=== PATIENT | female | born 1985 | race Caucasian/White ===

== ENCOUNTER → 2017-12-21 10:24 | Outpatient (CLI) | payer OTHER, SELFPAY | DX: Z23 Encounter for immunization (principal) ==

== ENCOUNTER → 2019-01-24 11:50 | Outpatient (CLI) | payer OTHER, SELFPAY | DX: Z23 Encounter for immunization (principal) | CPT/HCPCS: 90471; 90686 ==

== ENCOUNTER 2019-03-26 21:57 | Emergency (ER) | payer OTHER, SELFPAY ==
[2019-03-26 22:02] VITALS: BP 115/74; PULSE 89; RESP 14; TEMP 36.6; O2SAT 98; BMI 25.1
--- NOTE | 2019-03-26 22:11 | DI.RAD.S_ITS ---
PROCEDURE: XR KNEE LT 3V INDICATIONS: volleyball injury TECHNIQUE: Pre-views of the knee were acquired. COMPARISON: None. FINDINGS: Bones: No fractures or dislocations. No suspicious bony lesions. Status post anterior cruciate ligament repair. Soft tissues: Large suprapatellar joint effusion. No suspicious soft tissue calcifications. IMPRESSION: 1. No fracture. No osseous lesion. If symptoms and/or clinical suspicion for pathology persists, further assessment with repeat radiographs (7-10 days) or advanced imaging (e.g. CT, MRI or bone scan) may be helpful. 2. Large nonspecific joint effusion. Dictated by: Adriana Guadarrama MD, PhD on 03/27/2019 at 8:58 Approved by: Ardiana Guadarrama MD, PhD on 03/27/2019 at 8:59
--- NOTE | 2019-03-26 23:27 | ED_ITS ---
HPI - Extremity Injury (Lower) General Chief Complaint: Extremity Injury, Lower Stated Complaint: left knee pain Time Seen by Provider: 03/26/19 22:27 Source: patient Mode of arrival: Ambulatory Limitations: no limitations History of Present Illness HPI Narrative: Otherwise healthy 33-year-old woman presents with acute knee injury. She was playing volleyball this afternoon, planted her foot and then moved beyond the range of her knee. She felt that with it almost dislocated and then as she stood again it was back in position. Acutely painful and noticed an effusion starting immediately. She has a past history of an ACL repair on this knee. Review of Systems Review of Systems Narrative: Denies ? fever ? cough ? cold ? chills ? chest pain ? dyspnea ? orthopnea ? wheezing ? abdominal pain ? change to bowel or bladder habits ? nausea vomiting ? skin changes ? rashes Patient History Surgical History (Updated 03/26/19 @ 23:42 by Akiko Ballard MD) History of repair of ACL (Acute) Social History Smoking Status: Never smoker Smoking Status: Never smoker alcohol intake frequency: 0-2 drinks per day Substance Use Type: does not use Exam Narrative Exam Narrative: General: Alert appropriate in no acute distress Respiratory: Able to speak in full sentences, no obvious respiratory distress Skin: No obvious rashes, warm and dry Neurologic: Grossly intact no obvious asymmetries or abnormalities Psych, appropriate insight and affect, cooperative Lower extremity: Left knee with effusion. Difficult to fully examine due to swelling and pain however and there is significant laxity with anterior- posterior motion of the knee. She is neurovascularly intact distally. Initial Vital Signs Initial Vital Signs: Vital Signs Temperature 97.9 F 03/26/19 22:02 Pulse Rate 89 03/26/19 22:02 Respiratory Rate 14 03/26/19 22:02 Blood Pressure 115/74 03/26/19 22:02 Pulse Oximetry 98 03/26/19 22:02 Course Orders Ordered: ED Orders 03/26/19 22:11 XR knee LT 3V Stat Vital Signs Vital signs: Vital Signs - 8 hr 03/26/19 22:02 Temperature 97.9 F Pulse Rate 89 Respiratory Rate 14 Blood Pressure 115/74 Pulse Oximetry 98 MDM - Extremity Injury (Lower) Differential Diagnosis Differential diagnosis: Likely acute internal derangement of knee Medical Records Attestation: I reviewed the patient's medical records. Imaging Data Knee x-ray: Attestation: I personally reviewed and interpreted this imaging study as follows: My Impression: Significant effusion developing. Screw from prior surgery is noted. No bony injury or evidence of avulsion fracture. MDM Narrative Medical decision making narrative: 33-year-old woman with prior ACL injury to similar knee with similar mechanism and similar pain in presentation. I am concerned that she has again torn her ACL. She'll be placed in a knee immobilizer. Recommended not weight-bearing fully on that leg unsupported until she has been further evaluated by orthopedics. She any additional pain medication. She has her own crutches. All questions were answered. She is safe for home discharge Discharge Plan Departure Patient Disposition: Home Clinical Impression: Internal derangement of knee Qualifiers: Laterality: left Qualified Code(s): M23.92 - Unspecified internal derangement of left knee Instructions: DI for Knee Pain Activity Restrictions/Additional Instructions: Thank you for coming in today I'm so sorry that you injured your knee. I am quite concerned that you have again torn your anterior cruciate ligament. Your x-ray shows quite a bit of swelling but no bony injury. You will need to follow-up with our orthopedist office in the next week or so. You likely will end up needing an MRI but we need the swelling to go down to be able to do a more thorough exam to be able to recommend this completely. In the meantime, I a.m. concerned that your knee is not completely stable. Your biggest risk at this point is to step on the knee and fall again secondary to pain or knee instability. Please use the knee immobilizer and crutches until you have been seen by the orthopedic surgeon Ice, elevation, staying off the knee as much as possible and ibuprofen can all be helpful for pain control. I wish you the best and I hope this heals quickly Referrals: Driss Locke MD [Physician] -
[2019-03-26 23:51] VITALS: BP 113/73; PULSE 67; RESP 15; O2SAT 97
== END 2019-03-26 23:54 | disposition home or self-care (01) ==
PROVIDERS: Emergency Provider Emergency Medicine
DX: M23.92 Unspecified internal derangement of left knee (principal); X50.1XXA Overexertion from prolonged static or awkward postures, initial encounter; Y93.68 Activity, volleyball (beach) (court); Z87.828 Personal history of other (healed) physical injury and trauma
CPT/HCPCS: 73562; 99283

== ENCOUNTER → 2019-04-11 13:40 | Outpatient (CLI) | payer OTHER, SELFPAY ==
--- NOTE | 2019-04-11 | DI.MRI.S_ITS ---
PROCEDURE: MR KNEE LT WO CON INDICATIONS: PAIN IN LEFT KNEE TECHNIQUE: Noncontrast sagittal PD fast spin echo and T2 fast spin echo with fat saturation, sagittal 3-D FLASH with fat saturation; coronal T1 spin echo and PD fast spin echo with fat saturation, and axial PD fast spin echo with fat saturation through the knee. COMPARISON: [facility], CR, XR KNEE LT 3V, 03/26/2019, 22:08. [facility], MR, KNEE WITHOUT CONTRAST, 06/04/2017, 13:42. FINDINGS: Image quality: Diagnostic. Bones and joint: There is no acute fracture or dislocation. However, there is moderate diffuse marrow edema evident involving the posterior aspect of the medial and lateral portions of the tibial plateau. There is a concave deformity evident involving the weightbearing surface of the lateral femoral condyle with underlying reactive marrow edema. No suspicious osseous lesions are evident. There is a moderate-sized joint effusion with a trace amount of fluid extending into a small Gilliland's cyst. Moderate edema about the knee is present within the subcutaneous tissues. There is a small irregular full-thickness cartilaginous defect evident at the apex of the medial and lateral patellar facets with trace amount of reactive marrow edema. Otherwise, the hyaline articular cartilage throughout the knee is within normal limits. Cruciate ligaments: Postoperative changes are present related to previous ACL reconstruction. The ligamentous graft appears to be completely disrupted, particularly when compared to the prior study. The posterior cruciate ligament is intact. Menisci: There is moderate grade partial-thickness tearing involving the posterior root of the medial meniscus without definite complete root avulsion. The lateral meniscus is thinned, but noted to be intact. Medial structures: The medial collateral ligament is intact. Increased signal about the medial collateral ligament is noted. The semimembranosus tendon insertion is intact. The imaged portions of the pes anserinus tendons are unremarkable. No significant fluid is contained within the pes anserinus bursa. There is a medial patellar plica. Lateral structures: The popliteal tendon is intact. The lateral collateral ligament proper (fibular collateral ligament) and the proximal tibiofibular ligaments are intact. The distal aspect of the biceps femoris tendon and the iliotibial band are intact. Anterior structures: The quadriceps and patellar tendons are intact. Moderate increased signal is noted involving the proximal patellar tendon. There is no significant edema in the infrapatellar fat pad. IMPRESSION: 1. Bone contusions involve the posterior aspect of the medial and lateral portions of the tibial plateau and at the weightbearing surface of the lateral femoral condyle. No displaced fractures. 2. Full-thickness tear of the ACL graft, status post ACL reconstruction. 3. Moderate proximal patellar tendinopathy. 4. Medial collateral ligament sprain. 5. Moderate grade partial-thickness tear involving the posterior root of the medial meniscus. 6. Early patellofemoral chondromalacia. 7. Moderate-sized knee joint effusion with an associated Gilliland's cyst. 8. Subcutaneous edema about the knee. Dictated by: Darwin Waterman M.D. on 04/11/2019 at 13:43 Approved by: Darwin Waterman M.D. on 04/11/2019 at 13:47
== END ==
PROVIDERS: PCP Family Medicine; Visit Provider Family Medicine
DX: M25.562 Pain in left knee (principal); S80.02XA Contusion of left knee, initial encounter; S83.412A Sprain of medial collateral ligament of left knee, initial encounter; S83.242A Other tear of medial meniscus, current injury, left knee, initial encounter; T84.498A Other mechanical complication of other internal orthopedic devices, implants and grafts, initial encounter; M71.22 Synovial cyst of popliteal space [Baker], left knee; M22.42 Chondromalacia patellae, left knee; M25.462 Effusion, left knee
CPT/HCPCS: 73721

== ENCOUNTER 2019-06-14 15:15 | Outpatient (RCR) | payer OTHER, SELFPAY ==
--- NOTE | 2019-05-04 15:20 | PT.OPPOC ---
Physical, Occupational & Speech Therapy At [facility] Current Diagnoses Pain in left knee (05/04/19) Visit Care Team Role Provider Type Kiera Roberson MD Attending Provider Non-Staff Primary Care Provider Referring Provider Specialty: Medical Address: [address] [place] [address], [id number] Email: Plan Of Care PT-OP-T Assessment and Plan Start: 05/04/19 16:27 Freq: Status: Active Protocol: Document 05/04/19 15:20 DLM (Rec: 05/04/19 17:26 DLM [id number]) Physical Therapy Assessment Rehab Potential Rehabilitation Potential Excellent Evaluation Complexity Number of Personal Factors/Comorbidities 1-2 Number of Body Systems Impaired 4 or More Clinical Presentation at Evaluation Evolving Impairments Impairments Activity Tolerance,Balance, Functional Activities,Gait, Pain,ROM,Soft Tissue Mobility, Strength Other Concerns Age Related Concerns Cares for children Goals Three Impairment Decreased strength Left LE; knee 4/5, hip flex 4/5, hip ABD 4+/5 Short Term Goal (STG) Increase left knee strength to 4+/5 STG Duration 4 weeks Surgical Elastic Knitter Goal (LTG) Increase left LE strength to 5 /5 LTG Duration 6 weeks Two Impairment Antalgic gait Short Term Goal (STG) Normalize gait pattern without device STG Duration 4 weeks One Impairment Pain left knee Short Term Goal (STG) Decrease left knee pain to 2/ 10 STG Duration 3 weeks Fpc Goal (LTG) Resolve pain left knee with normal home and work activities LTG Duration 6 weeks Assessment Summary Assessment Corie present to therapy after a left knee injury with MRI findings of ACL tear. She is pending ortho consult. She has progressed herself off of crutches but continues to use her knee immobilizer as needed . She has mild edema left knee . Her ROM is good. She shows decreased strength with clinical testing and muscle atrophy with girth measurements. Will focus on strengthening while waiting on possible surgery plan. Physical Therapy Plan Frequency and Duration Frequency of Treatment 1-2x week Duration of Treatment 6 weeks Plan of Care Start Date 05/04/19 Plan of Care End Date 07/03/19 Therapeutic Interventions Therapeutic Interventions Gait Training,Home Exercise Program,Manual Therapy, Neuromuscular Re-education, Patient/Caregiver Education, Self-Care/Home Management,Soft Tissue Mobilization,Taping, Therapeutic Activities, Therapeutic Exercises Modalities Cold Pack/Ice Massage,Electric Stimulation Next Visit Focus/Plan Next Note Type Treatment Note Next Visit Plan slowly progress strengthening, add bridging, trial stationary bike, add leg press with light weight if can be done without pain, NO rotational motions, consider IFC and ice if edema continues Plan of Care Dates Plan of Care Start Date 05/04/19 Plan of Care End Date 07/03/19 Electronically Signed by: Phoebe Saldaña, PT 05/04/19 [id number] Please Sign and Return: I have reviewed this Plan of Care and certify that the skilled therapy services above are required to meet the patient?s needs. Physician Signature Date Printed Name and Credentials
--- NOTE | 2019-05-04 15:20 | PT.OIE ---
Current Diagnoses Pain in left knee (05/04/19) Past Surgical History (Last Updated 03/26/19 @ 23:42 by Akiko Ballard MD) History of repair of ACL (Acute) Visit Care Team Role Provider Type Kiera Roberson MD Attending Provider Non-Staff Primary Care Provider Referring Provider Specialty: Medical Address: [address] [place] [address], [id number] Email: Physical Therapy Initial Evaluation PT-OP-A Visit Information Start: 05/04/19 16:27 Freq: Status: Active Protocol: Document 05/04/19 15:20 DLM (Rec: 05/04/19 17:26 DLM [id number]) Out-Patient Physical Therapy Visit Information Visit Information Visit Type Initial Evaluation Visit Start Time 15:20 Visit Stop Time 16:00 Total Visit Minutes 40 Visit Number 04/10 Number of MANAGER DEMAND Visits 0 Evaluation Information Evaluation Date 05/04/19 Precautions Precautions Left ACL tear seen on MRI, ortho consult pending PT-OP-B Current Condition Start: 05/04/19 16:27 Freq: Status: Active Protocol: Document 05/04/19 15:20 DLM (Rec: 05/04/19 17:26 DLM [id number]) Current Condition History of Current Condition Onset Date 03/26/19 Current Complaints left knee pain History of Current Condition She was playing volleyball when she injured left knee. She went to ED and has an MRI. MRI is positive for ACL tear. She was placed in a knee immobilizer and on crutches. She continues to wear the knee immobilizer at work but not at home. She is now off the crutches. [place]. 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, Spouse is currently deployed Baseline Function- Recreation/Hobbies Volleyball Baseline Function- Other hx of old ACL tear left knee with repair using hamstring graft Current Functional Impairments (Reported) Functional Limitations- ADL's Independent, compensations for left knee Functional Limitations- Mobility/Gait Independent, uses knee immobilizer at work and as needed, no longer using crutches but she owns them, gait it limited in distance due to left knee pain s/p injury Functional Limitations- Work/School working normal work hours, wearing knee immobilizer, sits more often to rest and 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 She has 2-3 steps to enter the house without rail. Personal Factors Other Personal Factors That May Effect she is considering holding Therapy/Recovery surgery until her Spouse returns from deployment, He returns in September PT-OP-C Subjective Start: 05/04/19 16:27 Freq: Status: Active Protocol: Document 05/04/19 15:20 DL (Rec: 05/04/19 17:26 [facility] [id number]) OP-PT Subjective Patient Comments Patient Comments She was icing knee initially after injury but no longer icing very often. Patient Reported Progress Improving Patient Questionnaires Lower Extremity Functional Scale LEFS Score 39/80 LEFS Impairment 40 to 59% Impaired (Score 32- 47) OP-PT Pain Assessment Pain Assessment Grid Paper Pain Assessment Grid Completed Yes: copy in paper chart Location Left Knee Pain Location Details posterior knee pain 2/10 Intensity 4 Scale Used Numeric (1 - 10) Description Aching Frequency Constant Pain Aggravating Factors Standing,Walking,Stair Climbing Pain Alleviating Factors Cold,Rest Home Pain Medication Use Pain Medications Used No: none reported PT-OP-G Mobility & Gait Start: 05/04/19 16:27 Freq: Status: Active Protocol: Document 05/04/19 15:20 DLM (Rec: 05/04/19 17:26 [facility] [id number]) OP Mobility Evaluation Bed Mobility Supine to and from Sit independent Transfers Sit to Stand independent with UE support OP Gait Assessment Gait Gait Assistance Required: Independent Assistive Devices Assistive Device None Gait Deviations General Gait Pattern Antalgic Factors Limiting Gait Function Factors Limiting Gait Function Decreased Activity Tolerance, Decreased Strength,Pain Comments Gait Comments demonstrates safe gait pattern with and without knee immobilizer, she has crutches at home but not using them at this time Stair Climbing Evaluation Comments Stair Climbing Comments she reports using a step-to pattern at home to manage left knee PT-OP-J Posture/Palpation/Skin Start: 05/04/19 16:27 Freq: Status: Active Protocol: Document 05/04/19 15:20 DLM (Rec: 05/04/19 17:26 [facility] [id number]) Palpation Assessment Location One Palpation Location left knee Palpation Findings Edema,Tenderness Palpation Details increased temperature to touch anterior/lateral knee Skin Assessment Edema Assessment Left Edema Type Non-Pitting Subjective Edema Description Tightness Comments mild edema left knee, pocketing inferiorly Circumference Measurement 3 Location distal quad, left Measurement (Centimeters) 41.0 Comments right 42.5 2 Location Mid calf, left Measurement (Centimeters) 39.7 Comments right 42.3 1 Location knee joint, left Measurement (Centimeters) 38.7 Comments right 37.6 Incisional Assessment Incision Appearance/Comments no new incisions, old ACL incision is well healed Other Assessments Skin Assessment Comments no redness observed left LE, no edema identified distal to knee PT-OP-K Range of Motion Start: 05/04/19 16:27 Freq: Status: Active Protocol: Document 05/04/19 15:20 DLM (Rec: 05/04/19 17:28 [facility] [id number]) Knee Goniometric Range of Motion Knee Left Patient Position Supine Flexion Active (degrees) 132 Extension Active (degrees) 0 Right Knee ROM WFL Yes Patient Position Supine Flexion Active (degrees) 140 Hyper-Extension Active 5 Knee ROM Limitations Knee ROM Limitations Pain,Swelling PT-OP-M Strength Start: 05/04/19 16:27 Freq: Status: Active Protocol: Document 05/04/19 15:20 DLM (Rec: 05/04/19 17:26 [facility] [id number]) Hip Strength Hip Manual Muscle Testing Left Flexion (L2) 4 Good Extension (S1) 5 Normal Abduction 4+ Good+ Adduction 5 Normal Right Flexion (L2) 5 Normal Extension (S1) 5 Normal Abduction 5 Normal Reason Not Measured WFL Knee Strength Knee Manual Muscle Testing Left Flexion (S2) 4 Good Extension (L3) 4 Good Comments no increased pain with testing , crepitus patellar area during testing, hx patellar tracking impairment, MRI showed early chondromalacia Right Flexion (S2) 5 Normal Extension (L3) 5 Normal Reason Not Measured WFL Ankle/Foot Strength Ankle and Foot Manual Muscle Testing Left Dorsiflexion (L4) 5 Normal Plantarflexion (S1) 4+ Good+ Inversion 5 Normal Eversion (S1) 5 Normal Comments hx of ankle sprains but no ankle symptoms at this time Right Dorsiflexion (L4) 5 Normal Plantarflexion (S1) 5 Normal Inversion 5 Normal Eversion (S1) 5 Normal Reason Not Measured WFL PT-OP-Q Treatments Start: 05/04/19 16:27 Freq: Status: Active Protocol: Document 05/04/19 15:20 [facility] (Rec: 05/04/19 17:26 [facility] [id number]) Therapeutic Exercises Supine Exercises Straight Leg Raise Side left Reps/Minutes 10 reps Quad Sets Side left Reps/Minutes 5 count hold x 10 reps Comments to do in supported position only Heel Slides Side left Resistance active Reps/Minutes x 10 reps Prone Exercises Hip Extension Prone Exercise Name SLR position Side left Reps/Minutes 10 reps HS Curls Side left Reps/Minutes 10 reps Sidelying Exercises Hip Adduction Sidelying Exercise Name SLR position Side left Reps/Minutes 10 reps Comments No MCL pain Hip Abduction Sidelying Exercise Name SLR position Side left Reps/Minutes 10 reps Self-Care/Home Management Treatment Education Patient Education Home Exercise Program,Joint Protection,Pain Management PT-OP-T Assessment and Plan Start: 05/04/19 16:27 Freq: Status: Active Protocol: Document 05/04/19 15:20 DL (Rec: 05/04/19 17:26 [facility] [id number]) Physical Therapy Assessment Rehab Potential Rehabilitation Potential Excellent Evaluation Complexity Number of Personal Factors/Comorbidities 1-2 Number of Body Systems Impaired 4 or More Clinical Presentation at Evaluation Evolving Impairments Impairments Activity Tolerance,Balance, Functional Activities,Gait, Pain,ROM,Soft Tissue Mobility, Strength Other Concerns Age Related Concerns Cares for children Goals Three Impairment Decreased strength Left LE; knee 4/5, hip flex 4/5, hip ABD 4+/5 Short Term Goal (STG) Increase left knee strength to 4+/5 STG Duration 4 weeks Alf Goal (LTG) Increase left LE strength to 5 /5 LTG Duration 6 weeks Two Impairment Antalgic gait Short Term Goal (STG) Normalize gait pattern without device STG Duration 4 weeks One Impairment Pain left knee Short Term Goal (STG) Decrease left knee pain to 2/ 10 STG Duration 3 weeks Railroad Commissioner Goal (LTG) Resolve pain left knee with normal home and work activities LTG Duration 6 weeks Assessment Summary Assessment Corie present to therapy after a left knee injury with MRI findings of ACL tear. She is pending ortho consult. She has progressed herself off of crutches but continues to use her knee immobilizer as needed . She has mild edema left knee . Her ROM is good. She shows decreased strength with clinical testing and muscle atrophy with girth measurements. Will focus on strengthening while waiting on possible surgery plan. Physical Therapy Plan Frequency and Duration Frequency of Treatment 1-2x week Duration of Treatment 6 weeks Plan of Care Start Date 05/04/19 Plan of Care End Date 07/03/19 Therapeutic Interventions Therapeutic Interventions Gait Training,Home Exercise Program,Manual Therapy, Neuromuscular Re-education, Patient/Caregiver Education, Self-Care/Home Management,Soft Tissue Mobilization,Taping, Therapeutic Activities, Therapeutic Exercises Modalities Cold Pack/Ice Massage,Electric Stimulation Next Visit Focus/Plan Next Note Type Treatment Note Next Visit Plan slowly progress strengthening, add bridging, trial stationary bike, add leg press with light weight if can be done without pain, NO rotational motions, consider IFC and ice if edema continues
--- NOTE | 2019-05-11 16:00 | PT.OTN ---
Current Diagnoses Pain in left knee (05/11/19) Physical Therapy Treatment Note PT-OP-A Visit Information Start: 05/04/19 16:27 Freq: Status: Active Protocol: Document 05/11/19 13:14 KS (Rec: 05/11/19 16:55 KS [email or web address]) Out-Patient Physical Therapy Visit Information Visit Information Visit Type Treatment Note Visit Start Time 13:14 Visit Stop Time 14:00 Total Visit Minutes 46 Visit Number 2 Number of METEOROLOGY PROFESSOR Visits 1 PT-OP-B Current Condition Start: 05/04/19 16:27 Freq: Status: Active Protocol: Document 05/04/19 15:20 DLM (Rec: 05/04/19 17:26 DLM [id number]) Current Condition History of Current Condition Onset Date 03/26/19 Current Complaints left knee pain History of Current Condition She was playing volleyball when she injured left knee. She went to ED and has an MRI. MRI is positive for ACL tear. She was placed in a knee immobilizer and on crutches. She continues to wear the knee immobilizer at work but not at home. She is now off the crutches. [place]. 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 deployed Baseline Function- Recreation/Hobbies Volleyball Baseline Function- Other hx of old ACL tear left knee with repair using hamstring graft Current Functional Impairments (Reported) Functional Limitations- ADL's Independent, compensations for left knee Functional Limitations- Mobility/Gait Independent, uses knee immobilizer at work and as needed, no longer using crutches but she owns them, gait it limited in distance due to left knee pain s/p injury Functional Limitations- Work/School working normal work hours, wearing knee immobilizer, sits more often to rest and 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 She has 2-3 steps to enter the house without rail. Personal Factors Other Personal Factors That May Effect she is considering holding Therapy/Recovery surgery until her Spouse returns from deployment, He returns in September PT-OP-C Subjective Start: 05/04/19 16:27 Freq: Status: Active Protocol: Document 05/11/19 13:14 KS (Rec: 05/11/19 16:55 KS [email or web address]) OP-PT Subjective Patient Comments Patient Comments Pt states that she saw ortho, who recommended 2 part surgery to repair ACL. Pt offers that she wants to wait until her returns from deployment in August or September before having surgery. Patient Reported Progress Improving PT-OP-G Mobility & Gait Start: 05/04/19 16:27 Freq: Status: Active Protocol: Document 05/04/19 15:20 DLM (Rec: 05/04/19 17:26 DLM [id number]) OP Mobility Evaluation Bed Mobility Supine to and from Sit independent Transfers Sit to Stand independent with UE support OP Gait Assessment Gait Gait Assistance Required: Independent Assistive Devices Assistive Device None Gait Deviations General Gait Pattern Antalgic Factors Limiting Gait Function Factors Limiting Gait Function Decreased Activity Tolerance, Decreased Strength,Pain Comments Gait Comments demonstrates safe gait pattern with and without knee immobilizer, she has crutches at home but not using them at this time Stair Climbing Evaluation Comments Stair Climbing Comments she reports using a step-to pattern at home to manage left knee PT-OP-J Posture/Palpation/Skin Start: 05/04/19 16:27 Freq: Status: Active Protocol: Document 05/04/19 15:20 DLM (Rec: 05/04/19 17:26 DLM [id number]) Palpation Assessment Location One Palpation Location left knee Palpation Findings Edema,Tenderness Palpation Details increased temperature to touch anterior/lateral knee Skin Assessment Edema Assessment Left Edema Type Non-Pitting Subjective Edema Description Tightness Comments mild edema left knee, pocketing inferiorly Circumference Measurement 3 Location distal quad, left Measurement (Centimeters) 41.0 Comments right 42.5 2 Location Mid calf, left Measurement (Centimeters) 39.7 Comments right 42.3 1 Location knee joint, left Measurement (Centimeters) 38.7 Comments right 37.6 Incisional Assessment Incision Appearance/Comments no new incisions, old ACL incision is well healed Other Assessments Skin Assessment Comments no redness observed left LE, no edema identified distal to knee PT-OP-K Range of Motion Start: 05/04/19 16:27 Freq: Status: Active Protocol: Document 05/04/19 15:20 DLM (Rec: 05/04/19 17:28 DLM [id number]) Knee Goniometric Range of Motion Knee Left Patient Position Supine Flexion Active (degrees) 132 Extension Active (degrees) 0 Right Knee ROM WFL Yes Patient Position Supine Flexion Active (degrees) 140 Hyper-Extension Active 5 Knee ROM Limitations Knee ROM Limitations Pain,Swelling PT-OP-M Strength Start: 05/04/19 16:27 Freq: Status: Active Protocol: Document 05/04/19 15:20 DLM (Rec: 05/04/19 17:26 DLM [id number]) Hip Strength Hip Manual Muscle Testing Left Flexion (L2) 4 Good Extension (S1) 5 Normal Abduction 4+ Good+ Adduction 5 Normal Right Flexion (L2) 5 Normal Extension (S1) 5 Normal Abduction 5 Normal Reason Not Measured WFL Knee Strength Knee Manual Muscle Testing Left Flexion (S2) 4 Good Extension (L3) 4 Good Comments no increased pain with testing , crepitus patellar area during testing, hx patellar tracking impairment, MRI showed early chondromalacia Right Flexion (S2) 5 Normal Extension (L3) 5 Normal Reason Not Measured WFL Ankle/Foot Strength Ankle and Foot Manual Muscle Testing Left Dorsiflexion (L4) 5 Normal Plantarflexion (S1) 4+ Good+ Inversion 5 Normal Eversion (S1) 5 Normal Comments hx of ankle sprains but no ankle symptoms at this time Right Dorsiflexion (L4) 5 Normal Plantarflexion (S1) 5 Normal Inversion 5 Normal Eversion (S1) 5 Normal Reason Not Measured WFL PT-OP-Q Treatments Start: 05/04/19 16:27 Freq: Status: Active Protocol: Document 05/11/19 13:14 KS (Rec: 05/11/19 16:55 KS [email or web address]) Therapeutic Exercises Supine Exercises Bridges Supine Exercise Name Bridges Side bilateral Reps/Minutes 2x10 Comments cues for TA and glute activation Straight Leg Raise Side left Reps/Minutes 2x10 reps Quad Sets Side left Reps/Minutes 5 count hold x 10 reps Comments to do in supported position only Heel Slides Side left Resistance active Reps/Minutes 2x10 reps Prone Exercises Hip Extension Prone Exercise Name SLR position Side bilateral Reps/Minutes 2X10 reps HS Curls Prone Exercise Name Seated HS curls Side left Resistance L2 tband Reps/Minutes 2x10 Sidelying Exercises Hip Adduction Sidelying Exercise Name SLR position Side left Reps/Minutes 2x10 reps Comments No MCL pain Hip Abduction Sidelying Exercise Name SLR position Side bilateral Reps/Minutes 2x10 reps Sitting Exercises 1 Sitting Exercise Name Knee ext Resistance 5# Comments no pain reported Manual Therapy Treatment Soft Tissue Mobilization L quads, patellar tendon Body Location L quads, patellar tendon Mobilization Type Rolling Intensity/Depth Moderate Body Position Supine PT-OP-T Assessment and Plan Start: 05/04/19 16:27 Freq: Status: Active Protocol: Document 05/11/19 13:14 KS (Rec: 05/11/19 16:55 KS [email or web address]) Physical Therapy Assessment Rehab Potential Rehabilitation Potential Excellent Evaluation Complexity Number of Personal Factors/Comorbidities 1-2 Number of Body Systems Impaired 4 or More Clinical Presentation at Evaluation Evolving Impairments Impairments Activity Tolerance,Balance, Functional Activities,Gait, Pain,ROM,Soft Tissue Mobility, Strength Other Concerns Age Related Concerns Cares for children Goals Three Impairment Decreased strength Left LE; knee 4/5, hip flex 4/5, hip ABD 4+/5 Short Term Goal (STG) Increase left knee strength to 4+/5 STG Duration 4 weeks Box Annealer Goal (LTG) Increase left LE strength to 5 /5 LTG Duration 6 weeks Two Impairment Antalgic gait Short Term Goal (STG) Normalize gait pattern without device STG Duration 4 weeks One Impairment Pain left knee Short Term Goal (STG) Decrease left knee pain to 2/ 10 STG Duration 3 weeks Box Annealer Goal (LTG) Resolve pain left knee with normal home and work activities LTG Duration 6 weeks Assessment Summary Assessment Pt tolerated all LE strengthening exercises well today and denied any increase in pain. Treatment focused on quad and hamstring training to improve strength and stability of L knee. Slight edema identified in L knee upon palpation. Pt will benefit from continued hamstring and quad strengthening in preparation for possible surgery. Physical Therapy Plan Frequency and Duration Frequency of Treatment 1-2x week Duration of Treatment 6 weeks Therapeutic Interventions Therapeutic Interventions Gait Training,Home Exercise Program,Manual Therapy, Neuromuscular Re-education, Patient/Caregiver Education, Self-Care/Home Management,Soft Tissue Mobilization,Taping, Therapeutic Activities, Therapeutic Exercises Modalities Cold Pack/Ice Massage,Electric Stimulation Next Visit Focus/Plan Next Note Type Treatment Note Next Visit Plan slowly progress strengthening, trial stationary bike, add leg press with light weight if can be done without pain, NO rotational motions, consider IFC and ice if edema continues
--- NOTE | 2019-05-18 16:00 | PT.OTN ---
Current Diagnoses Pain in left knee (05/18/19) Physical Therapy Treatment Note PT-OP-A Visit Information Start: 05/04/19 16:27 Freq: Status: Active Protocol: Document 05/18/19 15:16 KS (Rec: 05/18/19 16:37 KS [email or web address]) Out-Patient Physical Therapy Visit Information Visit Information Visit Type Treatment Note Visit Start Time 15:16 Visit Stop Time 16:00 Total Visit Minutes 44 Visit Number 3/13 Number of CLOTH FINISHING RANGE BACK TENDER Visits 2 Precautions Precautions L ACL tear PT-OP-B Current Condition Start: 05/04/19 16:27 Freq: Status: Active Protocol: Document 05/04/19 15:20 DLM (Rec: 05/04/19 17:26 DLM [id number]) Current Condition History of Current Condition Onset Date 03/26/19 Current Complaints left knee pain History of Current Condition She was playing volleyball when she injured left knee. She went to ED and has an MRI. MRI is positive for ACL tear. She was placed in a knee immobilizer and on crutches. She continues to wear the knee immobilizer at work but not at home. She is now off the crutches. [place]. 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 Baseline Function- Recreation/Hobbies Volleyball Baseline Function- Other hx of old ACL tear left knee with repair using hamstring graft Current Functional Impairments (Reported) Functional Limitations- ADL's Independent, compensations for left knee Functional Limitations- Mobility/Gait Independent, uses knee immobilizer at work and as needed, no longer using crutches but she owns them, gait it limited in distance due to left knee pain s/p injury Functional Limitations- Work/School working normal work hours, wearing knee immobilizer, sits more often to rest and 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 She has 2-3 steps to enter the house without rail. Personal Factors Other Personal Factors That May Effect she is considering holding Therapy/Recovery surgery until her Spouse returns from deployment, He returns in September PT-OP-C Subjective Start: 05/04/19 16:27 Freq: Status: Active Protocol: Document 05/18/19 15:16 KS (Rec: 05/18/19 16:37 KS [email or web address]) OP-PT Subjective Patient Comments Patient Comments Pt reports that overall she is feeling good, but she has some soreness upon arrival to therapy today after doing a movement that caused pain in knee two days ago. Patient Reported Progress Improving PT-OP-G Mobility & Gait Start: 05/04/19 16:27 Freq: Status: Active Protocol: Document 05/04/19 15:20 DLM (Rec: 05/04/19 17:26 DLM [id number]) OP Mobility Evaluation Bed Mobility Supine to and from Sit independent Transfers Sit to Stand independent with UE support OP Gait Assessment Gait Gait Assistance Required: Independent Assistive Devices Assistive Device None Gait Deviations General Gait Pattern Antalgic Factors Limiting Gait Function Factors Limiting Gait Function Decreased Activity Tolerance, Decreased Strength,Pain Comments Gait Comments demonstrates safe gait pattern with and without knee immobilizer, she has crutches at home but not using them at this time Stair Climbing Evaluation Comments Stair Climbing Comments she reports using a step-to pattern at home to manage left knee PT-OP-J Posture/Palpation/Skin Start: 05/04/19 16:27 Freq: Status: Active Protocol: Document 05/04/19 15:20 DLM (Rec: 05/04/19 17:26 DLM [id number]) Palpation Assessment Location One Palpation Location left knee Palpation Findings Edema,Tenderness Palpation Details increased temperature to touch anterior/lateral knee Skin Assessment Edema Assessment Left Edema Type Non-Pitting Subjective Edema Description Tightness Comments mild edema left knee, pocketing inferiorly Circumference Measurement 3 Location distal quad, left Measurement (Centimeters) 41.0 Comments right 42.5 2 Location Mid calf, left Measurement (Centimeters) 39.7 Comments right 42.3 1 Location knee joint, left Measurement (Centimeters) 38.7 Comments right 37.6 Incisional Assessment Incision Appearance/Comments no new incisions, old ACL incision is well healed Other Assessments Skin Assessment Comments no redness observed left LE, no edema identified distal to knee PT-OP-K Range of Motion Start: 05/04/19 16:27 Freq: Status: Active Protocol: Document 05/04/19 15:20 DLM (Rec: 05/04/19 17:28 DLM [id number]) Knee Goniometric Range of Motion Knee Left Patient Position Supine Flexion Active (degrees) 132 Extension Active (degrees) 0 Right Knee ROM WFL Yes Patient Position Supine Flexion Active (degrees) 140 Hyper-Extension Active 5 Knee ROM Limitations Knee ROM Limitations Pain,Swelling PT-OP-M Strength Start: 05/04/19 16:27 Freq: Status: Active Protocol: Document 05/04/19 15:20 DLM (Rec: 05/04/19 17:26 DLM [id number]) Hip Strength Hip Manual Muscle Testing Left Flexion (L2) 4 Good Extension (S1) 5 Normal Abduction 4+ Good+ Adduction 5 Normal Right Flexion (L2) 5 Normal Extension (S1) 5 Normal Abduction 5 Normal Reason Not Measured WFL Knee Strength Knee Manual Muscle Testing Left Flexion (S2) 4 Good Extension (L3) 4 Good Comments no increased pain with testing , crepitus patellar area during testing, hx patellar tracking impairment, MRI showed early chondromalacia Right Flexion (S2) 5 Normal Extension (L3) 5 Normal Reason Not Measured WFL Ankle/Foot Strength Ankle and Foot Manual Muscle Testing Left Dorsiflexion (L4) 5 Normal Plantarflexion (S1) 4+ Good+ Inversion 5 Normal Eversion (S1) 5 Normal Comments hx of ankle sprains but no ankle symptoms at this time Right Dorsiflexion (L4) 5 Normal Plantarflexion (S1) 5 Normal Inversion 5 Normal Eversion (S1) 5 Normal Reason Not Measured WFL PT-OP-Q Treatments Start: 05/04/19 16:27 Freq: Status: Active Protocol: Document 05/18/19 15:16 KS (Rec: 05/18/19 16:37 KS [email or web address]) Cardio Equipment Recumbent Bicycle Duration (Minutes) 5 Resistance 4 Therapeutic Exercises Supine Exercises Bridges Supine Exercise Name Bridges Side bilateral Reps/Minutes 2x10 Comments cues for TA and glute activation Straight Leg Raise Side left Reps/Minutes 2x10 reps Quad Sets Side left Reps/Minutes 5 count hold x 10 reps Comments to do in supported position only Heel Slides Side left Resistance active Reps/Minutes 2x10 reps Prone Exercises Hip Extension Prone Exercise Name SLR position Side bilateral Reps/Minutes 2X10 reps Sidelying Exercises Clamshells Sidelying Exercise Name Clamshells Side left Reps/Minutes 2x10 Hip Adduction Sidelying Exercise Name SLR position Side left Reps/Minutes 2x10 reps Comments No MCL pain Hip Abduction Sidelying Exercise Name SLR position Side left Reps/Minutes 2x10 reps Standing Exercises Step ups Standing Exercise Name forward/lateral step ups Side left Equipment Used 4 inch step Reps/Minutes 2x10 Calf raises Standing Exercise Name Calf raises Reps/Minutes 3x10 Mini squats Standing Exercise Name Mini squats Side bilateral Reps/Minutes 2x10 Comments cues for knee alignment Neuro Re-Education Treatment Balance Activities SLS Details SLS/tandem Equipment foam Reps/Duration 2x30 s PT-OP-T Assessment and Plan Start: 05/04/19 16:27 Freq: Status: Active Protocol: Document 05/18/19 15:16 KS (Rec: 05/18/19 16:37 KS [email or web address]) Physical Therapy Assessment Rehab Potential Rehabilitation Potential Excellent Evaluation Complexity Number of Personal Factors/Comorbidities 1-2 Number of Body Systems Impaired 4 or More Clinical Presentation at Evaluation Evolving Impairments Impairments Activity Tolerance,Balance, Functional Activities,Gait, Pain,ROM,Soft Tissue Mobility, Strength Other Concerns Age Related Concerns Cares for children Goals Three Impairment Decreased strength Left LE; knee 4/5, hip flex 4/5, hip ABD 4+/5 Short Term Goal (STG) Increase left knee strength to 4+/5 STG Duration 4 weeks Nursing Home Goal (LTG) Increase left LE strength to 5 /5 LTG Duration 6 weeks Two Impairment Antalgic gait Short Term Goal (STG) Normalize gait pattern without device STG Duration 4 weeks One Impairment Pain left knee Short Term Goal (STG) Decrease left knee pain to 2/ 10 STG Duration 3 weeks Explosive Man Goal (LTG) Resolve pain left knee with normal home and work activities LTG Duration 6 weeks Assessment Summary Assessment Pt continues to do well w/ LE strengthening exercises, tolerated additional CKC exercises and recumbent bicycle well today. Pt denied any increase in pain throughout treatment and stated that soreness was much better after treatment as compared to arrival. Focused treatment on quad, calf, and glute strengthening to increase stability of L knee. Discussed getting second opinion about surgery - first opinion suggested 2 part surgery. Physical Therapy Plan Frequency and Duration Frequency of Treatment 1-2x week Duration of Treatment 6 weeks Therapeutic Interventions Therapeutic Interventions Gait Training,Home Exercise Program,Manual Therapy, Neuromuscular Re-education, Patient/Caregiver Education, Self-Care/Home Management,Soft Tissue Mobilization,Taping, Therapeutic Activities, Therapeutic Exercises Modalities Cold Pack/Ice Massage,Electric Stimulation Next Visit Focus/Plan Next Note Type Treatment Note Next Visit Plan slowly progress strengthening, trial stationary bike, add leg press with light weight if can be done without pain, NO rotational motions, consider IFC and ice if edema continues
--- NOTE | 2019-05-23 14:42 | PT.OTN ---
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 She went to ED and has an MRI. MRI is positive for ACL tear. She was placed in a knee immobilizer and on crutches. She continues to wear the knee immobilizer at work but not at home. She is now off the crutches. [place]. 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 deployed Baseline Function- Recreation/Hobbies Volleyball Baseline Function- Other hx of old ACL tear left knee with repair using hamstring graft Current Functional Impairments (Reported) Functional Limitations- ADL's Independent, compensations for left knee Functional Limitations- Mobility/Gait Independent, uses knee immobilizer at work and as needed, no longer using crutches but she owns them, gait it limited in distance due to left knee pain s/p injury Functional Limitations- Work/School working normal work hours, wearing knee immobilizer, sits more often to rest and 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 She has 2-3 steps to enter the house without rail. Personal Factors Other Personal Factors That May Effect she is considering holding Therapy/Recovery surgery until her Spouse returns from deployment, He returns in September PT-OP-C Subjective Start: 05/04/19 16:27 Freq: Status: Active Protocol: Document 05/23/19 13:49 MB (Rec: 05/23/19 14:41 MB [id number]) OP-PT Subjective Patient Comments Patient Comments Pt states that she is doing okay. She is benefitting from therapy. PT-OP-G Mobility & Gait Start: 05/04/19 16:27 Freq: Status: Active Protocol: Document 05/04/19 15:20 DLM (Rec: 05/04/19 17:26 DLM [id number]) OP Mobility Evaluation Bed Mobility Supine to and from Sit independent Transfers Sit to Stand independent with UE support OP Gait Assessment Gait Gait Assistance Required: Independent Assistive Devices Assistive Device None Gait Deviations General Gait Pattern Antalgic Factors Limiting Gait Function Factors Limiting Gait Function Decreased Activity Tolerance, Decreased Strength,Pain Comments Gait Comments demonstrates safe gait pattern with and without knee immobilizer, she has crutches at home but not using them at this time Stair Climbing Evaluation Comments Stair Climbing Comments she reports using a step-to pattern at home to manage left knee PT-OP-J Posture/Palpation/Skin Start: 05/04/19 16:27 Freq: Status: Active Protocol: Document 05/04/19 15:20 DLM (Rec: 05/04/19 17:26 DLM [id number]) Palpation Assessment Location One Palpation Location left knee Palpation Findings Edema,Tenderness Palpation Details increased temperature to touch anterior/lateral knee Skin Assessment Edema Assessment Left Edema Type Non-Pitting Subjective Edema Description Tightness Comments mild edema left knee, pocketing inferiorly Circumference Measurement 3 Location distal quad, left Measurement (Centimeters) 41.0 Comments right 42.5 2 Location Mid calf, left Measurement (Centimeters) 39.7 Comments right 42.3 1 Location knee joint, left Measurement (Centimeters) 38.7 Comments right 37.6 Incisional Assessment Incision Appearance/Comments no new incisions, old ACL incision is well healed Other Assessments Skin Assessment Comments no redness observed left LE, no edema identified distal to knee PT-OP-K Range of Motion Start: 05/04/19 16:27 Freq: Status: Active Protocol: Document 05/04/19 15:20 DLM (Rec: 05/04/19 17:28 DLM [id number]) Knee Goniometric Range of Motion Knee Left Patient Position Supine Flexion Active (degrees) 132 Extension Active (degrees) 0 Right Knee ROM WFL Yes Patient Position Supine Flexion Active (degrees) 140 Hyper-Extension Active 5 Knee ROM Limitations Knee ROM Limitations Pain,Swelling PT-OP-M Strength Start: 05/04/19 16:27 Freq: Status: Active Protocol: Document 05/04/19 15:20 DLM (Rec: 05/04/19 17:26 DLM [id number]) Hip Strength Hip Manual Muscle Testing Left Flexion (L2) 4 Good Extension (S1) 5 Normal Abduction 4+ Good+ Adduction 5 Normal Right Flexion (L2) 5 Normal Extension (S1) 5 Normal Abduction 5 Normal Reason Not Measured WFL Knee Strength Knee Manual Muscle Testing Left Flexion (S2) 4 Good Extension (L3) 4 Good Comments no increased pain with testing , crepitus patellar area during testing, hx patellar tracking impairment, MRI showed early chondromalacia Right Flexion (S2) 5 Normal Extension (L3) 5 Normal Reason Not Measured WFL Ankle/Foot Strength Ankle and Foot Manual Muscle Testing Left Dorsiflexion (L4) 5 Normal Plantarflexion (S1) 4+ Good+ Inversion 5 Normal Eversion (S1) 5 Normal Comments hx of ankle sprains but no ankle symptoms at this time Right Dorsiflexion (L4) 5 Normal Plantarflexion (S1) 5 Normal Inversion 5 Normal Eversion (S1) 5 Normal Reason Not Measured WFL PT-OP-Q Treatments Start: 05/04/19 16:27 Freq: Status: Active Protocol: Document 05/23/19 13:49 MB (Rec: 05/23/19 14:41 MB [id number]) Cardio Equipment Bicycle (Upright) Duration (Minutes) 10 Resistance 14 Seat Position 7 Therapeutic Exercises Supine Exercises Foreign stretch with core engagement Comments B 45 sec with mini heel to buttocks Sitting Exercises STM with rolling pin quads Comments Ed pt in performing at home, provided handout Standing Exercises Side stepping with level 1 band Comments 4 reps 5' side stepping with core engaged Manual Therapy Treatment Other Other Manual Treatments STM with rolling pin left quads with see saw motion, KT to support left knee: black tape--c strip under knee and B I strips medial and lateral knee PT-OP-T Assessment and Plan Start: 05/04/19 16:27 Freq: Status: Active Protocol: Document 05/23/19 13:49 MB (Rec: 05/23/19 14:41 MB [id number]) Physical Therapy Assessment Rehab Potential Rehabilitation Potential Excellent Evaluation Complexity Number of Personal Factors/Comorbidities 1-2 Number of Body Systems Impaired 4 or More Clinical Presentation at Evaluation Evolving Impairments Impairments Activity Tolerance,Balance, Functional Activities,Gait, Pain,ROM,Soft Tissue Mobility, Strength Other Concerns Age Related Concerns Cares for children Goals Three Impairment Decreased strength Left LE; knee 4/5, hip flex 4/5, hip ABD 4+/5 Short Term Goal (STG) Increase left knee strength to 4+/5 STG Duration 4 weeks Usp Goal (LTG) Increase left LE strength to 5 /5 LTG Duration 6 weeks Two Impairment Antalgic gait Short Term Goal (STG) Normalize gait pattern without device STG Duration 4 weeks One Impairment Pain left knee Short Term Goal (STG) Decrease left knee pain to 2/ 10 STG Duration 3 weeks Usp Goal (LTG) Resolve pain left knee with normal home and work activities LTG Duration 6 weeks Assessment Summary Assessment Upright bike today and encouraged pt to perform on her own. She responds well to quad work and taping for knee support. Added hip abduction strengthening and quad stretch . Physical Therapy Plan Frequency and Duration Frequency of Treatment 1-2x week Duration of Treatment 6 weeks Therapeutic Interventions Therapeutic Interventions Gait Training,Home Exercise Program,Manual Therapy, Neuromuscular Re-education, Patient/Caregiver Education, Self-Care/Home Management,Soft Tissue Mobilization,Taping, Therapeutic Activities, Therapeutic Exercises Modalities Cold Pack/Ice Massage,Electric Stimulation Next Visit Focus/Plan Next Note Type Treatment Note Next Visit Plan Con't progression, consider teaching self-KT for left knee support
--- NOTE | 2019-06-01 15:57 | PT.OTN ---
Current Diagnoses Pain in left knee (06/01/19) Physical Therapy Treatment Note PT-OP-A Visit Information Start: 05/04/19 16:27 Freq: Status: Active Protocol: Document 06/01/19 15:17 KS (Rec: 06/01/19 16:44 KS [id number]) Out-Patient Physical Therapy Visit Information Visit Information Visit Type Treatment Note Visit Start Time 15:17 Visit Stop Time 15:57 Total Visit Minutes 40 Visit Number 5/ Number of BLIND ESCORT Visits 1 PT-OP-B Current Condition Start: 05/04/19 16:27 Freq: Status: Active Protocol: Document 05/04/19 15:20 DLM (Rec: 05/04/19 17:26 DLM [id number]) Current Condition History of Current Condition Onset Date 03/26/19 Current Complaints left knee pain History of Current Condition She was playing volleyball when she injured left knee. She went to ED and has an MRI. MRI is positive for ACL tear. She was placed in a knee immobilizer and on crutches. She continues to wear the knee immobilizer at work but not at home. She is now off the crutches. [place]. 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 Baseline Function- Recreation/Hobbies Volleyball Baseline Function- Other hx of old ACL tear left knee with repair using hamstring graft Current Functional Impairments (Reported) Functional Limitations- ADL's Independent, compensations for left knee Functional Limitations- Mobility/Gait Independent, uses knee immobilizer at work and as needed, no longer using crutches but she owns them, gait it limited in distance due to left knee pain s/p injury Functional Limitations- Work/School working normal work hours, wearing knee immobilizer, sits more often to rest and 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 She has 2-3 steps to enter the house without rail. 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 Reports compliance w/ HEP. Patient Reported Progress Improving PT-OP-G Mobility & Gait Start: 05/04/19 16:27 Freq: Status: Active Protocol: Document 05/04/19 15:20 DLM (Rec: 05/04/19 17:26 DLM [id number]) OP Mobility Evaluation Bed Mobility Supine to and from Sit independent Transfers Sit to Stand independent with UE support OP Gait Assessment Gait Gait Assistance Required: Independent Assistive Devices Assistive Device None Gait Deviations General Gait Pattern Antalgic Factors Limiting Gait Function Factors Limiting Gait Function Decreased Activity Tolerance, Decreased Strength,Pain Comments Gait Comments demonstrates safe gait pattern with and without knee immobilizer, she has crutches at home but not using them at this time Stair Climbing Evaluation Comments Stair Climbing Comments she reports using a step-to pattern at home to manage left knee PT-OP-J Posture/Palpation/Skin Start: 05/04/19 16:27 Freq: Status: Active Protocol: Document 05/04/19 15:20 DLM (Rec: 05/04/19 17:26 DLM [id number]) Palpation Assessment Location One Palpation Location left knee Palpation Findings Edema,Tenderness Palpation Details increased temperature to touch anterior/lateral knee Skin Assessment Edema Assessment Left Edema Type Non-Pitting Subjective Edema Description Tightness Comments mild edema left knee, pocketing inferiorly Circumference Measurement 3 Location distal quad, left Measurement (Centimeters) 41.0 Comments right 42.5 2 Location Mid calf, left Measurement (Centimeters) 39.7 Comments right 42.3 1 Location knee joint, left Measurement (Centimeters) 38.7 Comments right 37.6 Incisional Assessment Incision Appearance/Comments no new incisions, old ACL incision is well healed Other Assessments Skin Assessment Comments no redness observed left LE, no edema identified distal to knee PT-OP-K Range of Motion Start: 05/04/19 16:27 Freq: Status: Active Protocol: Document 05/04/19 15:20 DLM (Rec: 05/04/19 17:28 DLM [id number]) Knee Goniometric Range of Motion Knee Left Patient Position Supine Flexion Active (degrees) 132 Extension Active (degrees) 0 Right Knee ROM WFL Yes Patient Position Supine Flexion Active (degrees) 140 Hyper-Extension Active 5 Knee ROM Limitations Knee ROM Limitations Pain,Swelling PT-OP-M Strength Start: 05/04/19 16:27 Freq: Status: Active Protocol: Document 05/04/19 15:20 DLM (Rec: 05/04/19 17:26 DLM [id number]) Hip Strength Hip Manual Muscle Testing Left Flexion (L2) 4 Good Extension (S1) 5 Normal Abduction 4+ Good+ Adduction 5 Normal Right Flexion (L2) 5 Normal Extension (S1) 5 Normal Abduction 5 Normal Reason Not Measured WFL Knee Strength Knee Manual Muscle Testing Left Flexion (S2) 4 Good Extension (L3) 4 Good Comments no increased pain with testing , crepitus patellar area during testing, hx patellar tracking impairment, MRI showed early chondromalacia Right Flexion (S2) 5 Normal Extension (L3) 5 Normal Reason Not Measured WFL Ankle/Foot Strength Ankle and Foot Manual Muscle Testing Left Dorsiflexion (L4) 5 Normal Plantarflexion (S1) 4+ Good+ Inversion 5 Normal Eversion (S1) 5 Normal Comments hx of ankle sprains but no ankle symptoms at this time Right Dorsiflexion (L4) 5 Normal Plantarflexion (S1) 5 Normal Inversion 5 Normal Eversion (S1) 5 Normal Reason Not Measured WFL PT-OP-Q Treatments Start: 05/04/19 16:27 Freq: Status: Active Protocol: Document 06/01/19 15:17 KS (Rec: 06/01/19 16:44 KS [id number]) Cardio Equipment Bicycle (Upright) Duration (Minutes) 10 Resistance 14 Seat Position 7 Therapeutic Exercises Supine Exercises Bridges Supine Exercise Name Bridges Side bilateral Reps/Minutes 2x10 Comments cues for TA and glute activation Straight Leg Raise Side left Reps/Minutes 2x10 reps Quad Sets Side left Reps/Minutes 5 count hold x 10 reps Comments to do in supported position only Standing Exercises Side stepping with level 1 band Standing Exercise Name Side steps Side bilateral Resistance YTB Reps/Minutes 5 laps Comments side stepping with core engaged Step ups Standing Exercise Name lateral step ups Side left Resistance back of chair for balance Equipment Used 6 inch step Reps/Minutes 2x10 Calf raises Standing Exercise Name Calf raises Reps/Minutes 3x10 Comments last set w/ lowering only on L side Mini squats Standing Exercise Name Mini squats Side bilateral Reps/Minutes 3x10 Comments last set w/ push up on L side only Manual Therapy Treatment Taping L knee Body Location L knee Treatment Focus L knee support Type of Tape KT tape (black) Comments C shape under knee, B I strips crossed under knee, then straight up med/lat quads PT-OP-T Assessment and Plan Start: 05/04/19 16:27 Freq: Status: Active Protocol: Document 06/01/19 15:17 KS (Rec: 06/01/19 16:44 KS [email or web address]) Physical Therapy Assessment Rehab Potential Rehabilitation Potential Excellent Evaluation Complexity Number of Personal Factors/Comorbidities 1-2 Number of Body Systems Impaired 4 or More Clinical Presentation at Evaluation Evolving Impairments Impairments Activity Tolerance,Balance, Functional Activities,Gait, Pain,ROM,Soft Tissue Mobility, Strength Other Concerns Age Related Concerns Cares for children Goals Three Impairment Decreased strength Left LE; knee 4/5, hip flex 4/5, hip ABD 4+/5 Short Term Goal (STG) Increase left knee strength to 4+/5 STG Duration 4 weeks Mcc Goal (LTG) Increase left LE strength to 5 /5 LTG Duration 6 weeks Two Impairment Antalgic gait Short Term Goal (STG) Normalize gait pattern without device STG Duration 4 weeks One Impairment Pain left knee Short Term Goal (STG) Decrease left knee pain to 2/ 10 STG Duration 3 weeks Mcc Goal (LTG) Resolve pain left knee with normal home and work activities LTG Duration 6 weeks Assessment Summary Assessment Pt tolerated all LE strengthening exercises well and demonstrated proper technique and body mechanics w / all exercises w/o needing cues. Pt responded well to quad and glute strengthening. KT tape to L knee for support. Physical Therapy Plan Frequency and Duration Frequency of Treatment 1-2x week Duration of Treatment 6 weeks Therapeutic Interventions Therapeutic Interventions Gait Training,Home Exercise Program,Manual Therapy, Neuromuscular Re-education, Patient/Caregiver Education, Self-Care/Home Management,Soft Tissue Mobilization,Taping, Therapeutic Activities, Therapeutic Exercises Modalities Cold Pack/Ice Massage,Electric Stimulation Next Visit Focus/Plan Next Note Type Treatment Note Next Visit Plan Con't progression, consider teaching self-KT for left knee support
--- NOTE | 2019-06-07 16:58 | PT.OTN ---
Current Diagnoses Pain in left knee (06/07/19) Physical Therapy Treatment Note PT-OP-A Visit Information Start: 05/04/19 16:27 Freq: Status: Active Protocol: Document 06/07/19 15:24 AW (Rec: 06/07/19 16:58 AW [id number]) Out-Patient Physical Therapy Visit Information Visit Information Visit Type Treatment Note Visit Start Time 15:17 Visit Stop Time 15:57 Total Visit Minutes 40 Visit Number 6/ Number of STEEL UNLOADER Visits 0 PT-OP-B Current Condition Start: 05/04/19 16:27 Freq: Status: Active Protocol: Document 05/04/19 15:20 DLM (Rec: 05/04/19 17:26 DLM [id number]) Current Condition History of Current Condition Onset Date 03/26/19 Current Complaints left knee pain History of Current Condition She was playing volleyball when she injured left knee. She went to ED and has an MRI. MRI is positive for ACL tear. She was placed in a knee immobilizer and on crutches. She continues to wear the knee immobilizer at work but not at home. She is now off the crutches. [place]. 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 deployed Baseline Function- Recreation/Hobbies Volleyball Baseline Function- Other hx of old ACL tear left knee with repair using hamstring graft Current Functional Impairments (Reported) Functional Limitations- ADL's Independent, compensations for left knee Functional Limitations- Mobility/Gait Independent, uses knee immobilizer at work and as needed, no longer using crutches but she owns them, gait it limited in distance due to left knee pain s/p injury Functional Limitations- Work/School working normal work hours, wearing knee immobilizer, sits more often to rest and 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 She has 2-3 steps to enter the house without rail. 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 She is considering her surgical options but if she decides on surgery, it will not be until August or September. Patient Reported Progress Improving PT-OP-G Mobility & Gait Start: 05/04/19 16:27 Freq: Status: Active Protocol: Document 05/04/19 15:20 DLM (Rec: 05/04/19 17:26 DLM [id number]) OP Mobility Evaluation Bed Mobility Supine to and from Sit independent Transfers Sit to Stand independent with UE support OP Gait Assessment Gait Gait Assistance Required: Independent Assistive Devices Assistive Device None Gait Deviations General Gait Pattern Antalgic Factors Limiting Gait Function Factors Limiting Gait Function Decreased Activity Tolerance, Decreased Strength,Pain Comments Gait Comments demonstrates safe gait pattern with and without knee immobilizer, she has crutches at home but not using them at this time Stair Climbing Evaluation Comments Stair Climbing Comments she reports using a step-to pattern at home to manage left knee PT-OP-J Posture/Palpation/Skin Start: 05/04/19 16:27 Freq: Status: Active Protocol: Document 05/04/19 15:20 DLM (Rec: 05/04/19 17:26 DLM [id number]) Palpation Assessment Location One Palpation Location left knee Palpation Findings Edema,Tenderness Palpation Details increased temperature to touch anterior/lateral knee Skin Assessment Edema Assessment Left Edema Type Non-Pitting Subjective Edema Description Tightness Comments mild edema left knee, pocketing inferiorly Circumference Measurement 3 Location distal quad, left Measurement (Centimeters) 41.0 Comments right 42.5 2 Location Mid calf, left Measurement (Centimeters) 39.7 Comments right 42.3 1 Location knee joint, left Measurement (Centimeters) 38.7 Comments right 37.6 Incisional Assessment Incision Appearance/Comments no new incisions, old ACL incision is well healed Other Assessments Skin Assessment Comments no redness observed left LE, no edema identified distal to knee PT-OP-K Range of Motion Start: 05/04/19 16:27 Freq: Status: Active Protocol: Document 05/04/19 15:20 DLM (Rec: 05/04/19 17:28 DLM [id number]) Knee Goniometric Range of Motion Knee Left Patient Position Supine Flexion Active (degrees) 132 Extension Active (degrees) 0 Right Knee ROM WFL Yes Patient Position Supine Flexion Active (degrees) 140 Hyper-Extension Active 5 Knee ROM Limitations Knee ROM Limitations Pain,Swelling PT-OP-M Strength Start: 05/04/19 16:27 Freq: Status: Active Protocol: Document 05/04/19 15:20 DLM (Rec: 05/04/19 17:26 DLM [id number]) Hip Strength Hip Manual Muscle Testing Left Flexion (L2) 4 Good Extension (S1) 5 Normal Abduction 4+ Good+ Adduction 5 Normal Right Flexion (L2) 5 Normal Extension (S1) 5 Normal Abduction 5 Normal Reason Not Measured WFL Knee Strength Knee Manual Muscle Testing Left Flexion (S2) 4 Good Extension (L3) 4 Good Comments no increased pain with testing , crepitus patellar area during testing, hx patellar tracking impairment, MRI showed early chondromalacia Right Flexion (S2) 5 Normal Extension (L3) 5 Normal Reason Not Measured WFL Ankle/Foot Strength Ankle and Foot Manual Muscle Testing Left Dorsiflexion (L4) 5 Normal Plantarflexion (S1) 4+ Good+ Inversion 5 Normal Eversion (S1) 5 Normal Comments hx of ankle sprains but no ankle symptoms at this time Right Dorsiflexion (L4) 5 Normal Plantarflexion (S1) 5 Normal Inversion 5 Normal Eversion (S1) 5 Normal Reason Not Measured WFL PT-OP-Q Treatments Start: 05/04/19 16:27 Freq: Status: Active Protocol: Document 06/07/19 15:24 AW (Rec: 06/07/19 16:58 AW [id number]) Cardio Equipment Bicycle (Upright) Duration (Minutes) 10 Resistance 14 Seat Position 7 Therapeutic Exercises Supine Exercises HS stretch Supine Exercise Name HS stretch Side left Resistance manual Reps/Minutes 2 minutes Comments contract/relax with education on performing at home single leg bridge Supine Exercise Name single leg bridge Side bilateral Reps/Minutes 12 reps x 2 Comments cues for level pelvis; Foreign stretch with core engagement Supine Exercise Name foreign stretch Side left Resistance manual Reps/Minutes 2 min Comments mini heel to buttocks Bridges Supine Exercise Name Bridges with adduction Side bilateral Equipment Used purple ball between kees Reps/Minutes 2x10 Comments cues for TA and glute activation Standing Exercises monster walk Standing Exercise Name monster walk Side bilateral Resistance YTB Reps/Minutes 3 laps Comments fwd/bwd Side stepping with level 1 band Standing Exercise Name Side steps Side bilateral Resistance YTB Reps/Minutes 5 laps Comments side stepping with core engaged Manual Therapy Treatment Taping L knee Body Location L knee Treatment Focus L knee support Type of Tape KT tape (black) Comments C shape under knee, B I strips crossed under knee, then straight up med/lat quads PT-OP-T Assessment and Plan Start: 05/04/19 16:27 Freq: Status: Active Protocol: Document 06/07/19 15:24 AW (Rec: 06/07/19 16:58 AW [id number]) Physical Therapy Assessment Impairments Impairments Activity Tolerance,Balance, Functional Activities,Gait, Pain,ROM,Soft Tissue Mobility, Strength Other Concerns Age Related Concerns Cares for children Goals Three Impairment Decreased strength Left LE; knee 4/5, hip flex 4/5, hip ABD 4+/5 Short Term Goal (STG) Increase left knee strength to 4+/5 STG Duration 4 weeks Nurse Licensed Practical Goal (LTG) Increase left LE strength to 5 /5 LTG Duration 6 weeks Two Impairment Antalgic gait Short Term Goal (STG) Normalize gait pattern without device STG Duration 4 weeks One Impairment Pain left knee Short Term Goal (STG) Decrease left knee pain to 2/ 10 STG Duration 3 weeks Nurse Licensed Practical Goal (LTG) Resolve pain left knee with normal home and work activities LTG Duration 6 weeks Assessment Summary Assessment Pt responds well to taping, stating it increases her confidence in the knee which is one of her chief complaints . She tolerated increased challenge in LE strengthening today. Physical Therapy Plan Frequency and Duration Frequency of Treatment 1-2x week Duration of Treatment 6 weeks Therapeutic Interventions Therapeutic Interventions Gait Training,Home Exercise Program,Manual Therapy, Neuromuscular Re-education, Patient/Caregiver Education, Self-Care/Home Management,Soft Tissue Mobilization,Taping, Therapeutic Activities, Therapeutic Exercises Modalities Cold Pack/Ice Massage,Electric Stimulation Next Visit Focus/Plan Next Note Type Treatment Note Next Visit Plan Con't progression, consider teaching self-KT for left knee support
--- NOTE | 2019-06-14 17:25 | PT.OTN ---
Current Diagnoses Pain in left knee (06/14/19) Physical Therapy Treatment Note PT-OP-A Visit Information Start: 05/04/19 16:27 Freq: Status: Active Protocol: Document 06/14/19 15:00 AW (Rec: 06/14/19 17:25 AW [id number]) Out-Patient Physical Therapy Visit Information Visit Information Visit Type Treatment Note Visit Start Time 15:15 Visit Number 7 Number of SENIOR ATTORNEY Visits 0 Precautions Precautions L ACL tear PT-OP-B Current Condition Start: 05/04/19 16:27 Freq: Status: Active Protocol: Document 05/04/19 15:20 DLM (Rec: 05/04/19 17:26 DLM [id number]) Current Condition History of Current Condition Onset Date 03/26/19 Current Complaints left knee pain History of Current Condition She was playing volleyball when she injured left knee. She went to ED and has an MRI. MRI is positive for ACL tear. She was placed in a knee immobilizer and on crutches. She continues to wear the knee immobilizer at work but not at home. She is now off the crutches. [place]. 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 Baseline Function- Recreation/Hobbies Volleyball Baseline Function- Other hx of old ACL tear left knee with repair using hamstring graft Current Functional Impairments (Reported) Functional Limitations- ADL's Independent, compensations for left knee Functional Limitations- Mobility/Gait Independent, uses knee immobilizer at work and as needed, no longer using crutches but she owns them, gait it limited in distance due to left knee pain s/p injury Functional Limitations- Work/School working normal work hours, wearing knee immobilizer, sits more often to rest and 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 She has 2-3 steps to enter the house without rail. Personal Factors Other Personal Factors That May Effect she is considering holding Therapy/Recovery surgery until her Spouse returns from deployment, He returns in September PT-OP-C Subjective Start: 05/04/19 16:27 Freq: Status: Active Protocol: Document 06/14/19 15:00 AW (Rec: 06/14/19 17:25 AW [id number]) OP-PT Subjective Patient Comments Patient Comments Stairs are getting easier, even coming down. Feeling more swollen the last few days with lack of activity. Pt has had changing workload in response to COVID-19. Patient Reported Progress Improving PT-OP-G Mobility & Gait Start: 05/04/19 16:27 Freq: Status: Active Protocol: Document 05/04/19 15:20 DLM (Rec: 05/04/19 17:26 DLM [id number]) OP Mobility Evaluation Bed Mobility Supine to and from Sit independent Transfers Sit to Stand independent with UE support OP Gait Assessment Gait Gait Assistance Required: Independent Assistive Devices Assistive Device None Gait Deviations General Gait Pattern Antalgic Factors Limiting Gait Function Factors Limiting Gait Function Decreased Activity Tolerance, Decreased Strength,Pain Comments Gait Comments demonstrates safe gait pattern with and without knee immobilizer, she has crutches at home but not using them at this time Stair Climbing Evaluation Comments Stair Climbing Comments she reports using a step-to pattern at home to manage left knee PT-OP-J Posture/Palpation/Skin Start: 05/04/19 16:27 Freq: Status: Active Protocol: Document 05/04/19 15:20 DLM (Rec: 05/04/19 17:26 DLM [id number]) Palpation Assessment Location One Palpation Location left knee Palpation Findings Edema,Tenderness Palpation Details increased temperature to touch anterior/lateral knee Skin Assessment Edema Assessment Left Edema Type Non-Pitting Subjective Edema Description Tightness Comments mild edema left knee, pocketing inferiorly Circumference Measurement 3 Location distal quad, left Measurement (Centimeters) 41.0 Comments right 42.5 2 Location Mid calf, left Measurement (Centimeters) 39.7 Comments right 42.3 1 Location knee joint, left Measurement (Centimeters) 38.7 Comments right 37.6 Incisional Assessment Incision Appearance/Comments no new incisions, old ACL incision is well healed Other Assessments Skin Assessment Comments no redness observed left LE, no edema identified distal to knee PT-OP-K Range of Motion Start: 05/04/19 16:27 Freq: Status: Active Protocol: Document 05/04/19 15:20 DLM (Rec: 05/04/19 17:28 DLM [id number]) Knee Goniometric Range of Motion Knee Left Patient Position Supine Flexion Active (degrees) 132 Extension Active (degrees) 0 Right Knee ROM WFL Yes Patient Position Supine Flexion Active (degrees) 140 Hyper-Extension Active 5 Knee ROM Limitations Knee ROM Limitations Pain,Swelling PT-OP-M Strength Start: 05/04/19 16:27 Freq: Status: Active Protocol: Document 05/04/19 15:20 DLM (Rec: 05/04/19 17:26 DLM [id number]) Hip Strength Hip Manual Muscle Testing Left Flexion (L2) 4 Good Extension (S1) 5 Normal Abduction 4+ Good+ Adduction 5 Normal Right Flexion (L2) 5 Normal Extension (S1) 5 Normal Abduction 5 Normal Reason Not Measured WFL Knee Strength Knee Manual Muscle Testing Left Flexion (S2) 4 Good Extension (L3) 4 Good Comments no increased pain with testing , crepitus patellar area during testing, hx patellar tracking impairment, MRI showed early chondromalacia Right Flexion (S2) 5 Normal Extension (L3) 5 Normal Reason Not Measured WFL Ankle/Foot Strength Ankle and Foot Manual Muscle Testing Left Dorsiflexion (L4) 5 Normal Plantarflexion (S1) 4+ Good+ Inversion 5 Normal Eversion (S1) 5 Normal Comments hx of ankle sprains but no ankle symptoms at this time Right Dorsiflexion (L4) 5 Normal Plantarflexion (S1) 5 Normal Inversion 5 Normal Eversion (S1) 5 Normal Reason Not Measured WFL PT-OP-Q Treatments Start: 05/04/19 16:27 Freq: Status: Active Protocol: Document 06/14/19 15:00 AW (Rec: 06/14/19 17:25 AW [id number]) Cardio Equipment Bicycle (Upright) Duration (Minutes) 8 Resistance 14 Seat Position 7 Gym Equipment Shuttle Recovery Bilateral Squats Details bilateral Resistance 75 Shuttle Recovery Platform Unstable Reps/Time 15x2 Unilateral Squats Details uni squat - left Resistance 50 Shuttle Recovery Platform Stable Reps/Time 15x2 Therapeutic Exercises Standing Exercises single leg squat Standing Exercise Name single leg squat Side left Resistance level 2 Equipment Used TB Reps/Minutes 10 reps x 2 Comments band around knees; cues for glute engagement, control of knee posture 3-way hip Standing Exercise Name 3-way hip Side right Resistance orange cord Reps/Minutes 10 reps x 2 each direction Comments focus on left knee stability Calf raises Standing Exercise Name Calf raises Reps/Minutes 2x10 Comments slow eccentric phase; last few reps unilateral Manual Therapy Treatment Taping L knee Body Location L knee Treatment Focus L knee support Type of Tape KT tape (black) Comments C shape under knee, B I strips crossed under knee, then straight up med/lat quads Neuro Re-Education Treatment Other Activities modified STAR balance test Details modified STAR balance test Comments Pt in unilateral stance asked to tap toe anteriorly, laterally, and posteriorly Right stance: ant: 26 lat: 34 post: 32 L stance: ant: 20 lat: 36 post: 31 PT-OP-T Assessment and Plan Start: 05/04/19 16:27 Freq: Status: Active Protocol: Document 06/14/19 15:00 AW (Rec: 06/14/19 17:25 AW [id number]) Physical Therapy Assessment Impairments Impairments Activity Tolerance,Balance, Functional Activities,Gait, Pain,ROM,Soft Tissue Mobility, Strength Other Concerns Age Related Concerns Cares for children Goals Three Impairment Decreased strength Left LE; knee 4/5, hip flex 4/5, hip ABD 4+/5 Short Term Goal (STG) Increase left knee strength to 4+/5 STG Duration 4 weeks Mcc Goal (LTG) Increase left LE strength to 5 /5 LTG Duration 6 weeks Two Impairment Antalgic gait Short Term Goal (STG) Normalize gait pattern without device STG Duration 4 weeks One Impairment Pain left knee Short Term Goal (STG) Decrease left knee pain to 2/ 10 STG Duration 3 weeks Mcc Goal (LTG) Resolve pain left knee with normal home and work activities LTG Duration 6 weeks Assessment Summary Assessment Pt is increasing in confidence concerning her left knee. She tolerated increased exercise intensity today, stating it just feels good to be doing it . Physical Therapy Plan Frequency and Duration Frequency of Treatment 1-2x week Duration of Treatment 6 weeks Therapeutic Interventions Therapeutic Interventions Gait Training,Home Exercise Program,Manual Therapy, Neuromuscular Re-education, Patient/Caregiver Education, Self-Care/Home Management,Soft Tissue Mobilization,Taping, Therapeutic Activities, Therapeutic Exercises Modalities Cold Pack/Ice Massage,Electric Stimulation Next Visit Focus/Plan Next Note Type Treatment Note Next Visit Plan Con't progression, consider teaching self-KT for left knee support
--- NOTE | 2020-02-28 11:09 | PT.OPDS ---
Current Diagnoses Pain in left knee (06/14/19) Visit Care Team Role Provider Type Kiera Roberson MD Attending Provider Non-Staff Primary Care Provider Referring Provider Specialty: Medical Address: [address] [place] [address], [facility] Email: Visit Number Visit Number 10/[id number] Discharge Summary PT-OP-B Current Condition Start: 05/04/19 16:27 Freq: Status: Active Protocol: Document 05/04/19 15:20 DLM (Rec: 05/04/19 17:26 DLM [id number]) Current Condition History of Current Condition Onset Date 03/26/19 Current Complaints left knee pain History of Current Condition She was playing volleyball when she injured left knee. She went to ED and has an MRI. MRI is positive for ACL tear. She was placed in a knee immobilizer and on crutches. She continues to wear the knee immobilizer at work but not at home. She is now off the crutches. [place]. 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, Spouse is currently deployed Baseline Function- Recreation/Hobbies Volleyball Baseline Function- Other hx of old ACL tear left knee with repair using hamstring graft Current Functional Impairments (Reported) Functional Limitations- ADL's Independent, compensations for left knee Functional Limitations- Mobility/Gait Independent, uses knee immobilizer at work and as needed, no longer using crutches but she owns them, gait it limited in distance due to left knee pain s/p injury Functional Limitations- Work/School working normal work hours, wearing knee immobilizer, sits more often to rest and 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 She has 2-3 steps to enter the house without rail. Personal Factors Other Personal Factors That May Effect she is considering holding Therapy/Recovery surgery until her Spouse returns from deployment, He returns in September PT-OP-C Subjective Start: 05/04/19 16:27 Freq: Status: Active Protocol: Document 06/14/19 15:00 AW (Rec: 06/14/19 17:25 AW [id number]) OP-PT Subjective Patient Comments Patient Comments Stairs are getting easier, even coming down. Feeling more swollen the last few days with lack of activity. Pt has had changing workload in response to COVID-19. Patient Reported Progress Improving PT-OP-G Mobility & Gait Start: 05/04/19 16:27 Freq: Status: Active Protocol: Document 05/04/19 15:20 DLM (Rec: 05/04/19 17:26 DLM [id number]) OP Mobility Evaluation Bed Mobility Supine to and from Sit independent Transfers Sit to Stand independent with UE support OP Gait Assessment Gait Gait Assistance Required: Independent Assistive Devices Assistive Device None Gait Deviations General Gait Pattern Antalgic Factors Limiting Gait Function Factors Limiting Gait Function Decreased Activity Tolerance, Decreased Strength,Pain Comments Gait Comments demonstrates safe gait pattern with and without knee immobilizer, she has crutches at home but not using them at this time Stair Climbing Evaluation Comments Stair Climbing Comments she reports using a step-to pattern at home to manage left knee PT-OP-J Posture/Palpation/Skin Start: 05/04/19 16:27 Freq: Status: Active Protocol: Document 05/04/19 15:20 DLM (Rec: 05/04/19 17:26 DLM [id number]) Palpation Assessment Location One Palpation Location left knee Palpation Findings Edema,Tenderness Palpation Details increased temperature to touch anterior/lateral knee Skin Assessment Edema Assessment Left Edema Type Non-Pitting Subjective Edema Description Tightness Comments mild edema left knee, pocketing inferiorly Circumference Measurement 3 Location distal quad, left Measurement (Centimeters) 41.0 Comments right 42.5 2 Location Mid calf, left Measurement (Centimeters) 39.7 Comments right 42.3 1 Location knee joint, left Measurement (Centimeters) 38.7 Comments right 37.6 Incisional Assessment Incision Appearance/Comments no new incisions, old ACL incision is well healed Other Assessments Skin Assessment Comments no redness observed left LE, no edema identified distal to knee PT-OP-K Range of Motion Start: 05/04/19 16:27 Freq: Status: Active Protocol: Document 05/04/19 15:20 DLM (Rec: 05/04/19 17:28 DLM [id number]) Knee Goniometric Range of Motion Knee Left Patient Position Supine Flexion Active (degrees) 132 Extension Active (degrees) 0 Right Knee ROM WFL Yes Patient Position Supine Flexion Active (degrees) 140 Hyper-Extension Active 5 Knee ROM Limitations Knee ROM Limitations Pain,Swelling PT-OP-M Strength Start: 05/04/19 16:27 Freq: Status: Active Protocol: Document 05/04/19 15:20 DLM (Rec: 05/04/19 17:26 DLM [id number]) Hip Strength Hip Manual Muscle Testing Left Flexion (L2) 4 Good Extension (S1) 5 Normal Abduction 4+ Good+ Adduction 5 Normal Right Flexion (L2) 5 Normal Extension (S1) 5 Normal Abduction 5 Normal Reason Not Measured WFL Knee Strength Knee Manual Muscle Testing Left Flexion (S2) 4 Good Extension (L3) 4 Good Comments no increased pain with testing , crepitus patellar area during testing, hx patellar tracking impairment, MRI showed early chondromalacia Right Flexion (S2) 5 Normal Extension (L3) 5 Normal Reason Not Measured WFL Ankle/Foot Strength Ankle and Foot Manual Muscle Testing Left Dorsiflexion (L4) 5 Normal Plantarflexion (S1) 4+ Good+ Inversion 5 Normal Eversion (S1) 5 Normal Comments hx of ankle sprains but no ankle symptoms at this time Right Dorsiflexion (L4) 5 Normal Plantarflexion (S1) 5 Normal Inversion 5 Normal Eversion (S1) 5 Normal Reason Not Measured WFL PT-OP-T Assessment and Plan Start: 05/04/19 16:27 Freq: Status: Active Protocol: Document 02/28/20 11:06 AW (Rec: 02/28/20 11:08 AW [id number]) Physical Therapy Plan Discharge Physical Therapy Discharge Reasons No Longer Attending PT Discharge Comments Pt has not attended PT since beginning of COVID 19 restrictions in May 2019.
== END 2020-03-14 13:16 ==
LOC: PHYS 15:15
PROVIDERS: PCP Family Medicine; Referring Provider Family Medicine; Visit Provider Family Medicine
DX: M25.562 Pain in left knee (principal)
CPT/HCPCS: 97110; 97112; 97140; 97162

== ENCOUNTER → 2020-02-15 12:53 | Outpatient (CLI) | payer OTHER, SELFPAY | PROVIDERS: PCP Family Medicine; Referring Provider Internal Medicine; Visit Provider Internal Medicine | DX: Z23 Encounter for immunization (principal) | CPT/HCPCS: 90471; 90686 ==

== ENCOUNTER → 2020-05-29 12:14 | Outpatient (CLI) | payer OTHER, SELFPAY ==
--- NOTE | 2020-05-29 | DI.MRI.S_ITS ---
PROCEDURE: MR KNEE LT WO CON INDICATIONS: chronic instability of knee, left knee TECHNIQUE: Noncontrast sagittal PD fast spin echo and T2 fast spin echo with fat saturation, sagittal 3-D FLASH with fat saturation; coronal T1 spin echo and PD fast spin echo with fat saturation, and axial PD fast spin echo with fat saturation through the knee. COMPARISON: [facility], MR, MR KNEE LT WO CON, 04/11/2019, 13:44. FINDINGS: Image quality: Excellent. Menisci: Medial meniscus intact. Lateral meniscus intact. Cruciate ligaments: Status post anterior cruciate ligament reconstruction. The graft is not well visualized suggestive of rupture as before. There may be a few intact fibers, in particular seen on the coronal pulse sequences. Posterior cruciate ligament appears intact. Medial structures: The medial collateral ligament appears intact. Semimembranosus tendon appears intact. Visualized portions of the pes anserinus tendons appear normal. No abnormal bursal fluid. Lateral structures: The lateral collateral ligament intact. Biceps femoris tendon appears intact. Popliteus tendon grossly unremarkable. Iliotibial band appears intact. Anterior structures: Quadriceps tendon intact. Medial and lateral patellofemoral ligaments intact. There is mild patellar presumed postsurgical changes/tendinopathy. Prepatellar and superficial infrapatellar subcutaneous edema/fluid. Bones and cartilage: No focal marrow contusion or discrete low signal fracture line. Within the medial compartment, diffuse partial-thickness loss of the femoral and tibial articular cartilage. Within the lateral compartment, surface fraying of the femoral and tibial articular cartilage. Within the patellofemoral compartment, fraying of the cartilage overlying the median patellar ridge. Joint space: No pathologic joint effusion Interval resolution in previous Gilliland's cyst. No specific evidence of intra-articular loose body. IMPRESSION: Status post anterior cruciate ligament reconstruction. The graft is not well visualized suggesting rupture as before, and or advanced degeneration. Recommend correlation to clinical exam findings. This is likely chronic and grossly unchanged since the prior study Mild degenerative joint disease. No definite interval change. Dictated by: Jesus Maldonado M.D. on 05/29/2020 at 13:01 Approved by: Jesus Maldonado M.D. on 05/29/2020 at 13:14
== END ==
PROVIDERS: PCP Family Medicine; Referring Provider Student in an Organized Health Care Education/Training Program; Visit Provider Student in an Organized Health Care Education/Training Program
DX: M23.52 Chronic instability of knee, left knee (principal); M17.12 Unilateral primary osteoarthritis, left knee
CPT/HCPCS: 73721

== ENCOUNTER → 2020-12-20 10:18 | Outpatient (CLI) | payer OTHER, SELFPAY ==
[2020-12-20 11:28] LABS: COVID19 -Nasal RAPID Negative (Negative)
== END ==
PROVIDERS: PCP Family Medicine; Visit Provider Nurse Practitioner
DX: Z20.822 Contact with and (suspected) exposure to COVID-19 (principal); J02.9 Acute pharyngitis, unspecified; R09.81 Nasal congestion
CPT/HCPCS: 87635